=== PATIENT | female | born 1970 | race Caucasian/White ===

== ENCOUNTER 2019-07-21 19:25 | Observation (INO) ==
[2019-07-21 19:44] LABS: Basophils # 0.1 K/mm3 (0-0.2); Eosinophils # 0.3 K/mm3 (0.0-0.4); Eosinophils % 3.5 % (0.1-12.0); Hematocrit 42.5 % (37.0-47.0); Hemoglobin 13.9 g/dL (12.2-16.2); Lymphocytes # 3.1 K/mm3 (0.7-4.5); Lymphocytes % 36.7 % (10-50); Mean Corpuscular HGB Conc 32.7 g/dL (31.8-35.4); Mean Corpuscular Volume 92.4 fl (81-99); Mean Platelet Volume 7.6 fl (7.4-10.4); Monocytes # 0.4 K/mm3 (0.1-1.0); Monocytes % 5.2 % (1.7-9.3); Neutrophils # 4.6 K/mm3 (1.8-7.8); Neutrophils % 53.6 % (37.0-80.0); Platelet Count 263 K/mm3 (142-424); Red Cell Distribution Width 12.7 % (11.5-17.5); White Blood Count 8.5 K/mm3 (4.8-10.8)
--- NOTE | 2019-07-21 20:01 | Emergency Department Note ---
ED Disposition Clinical Impression: Palpitations Chest pain Qualifiers: Chest pain type: precordial pain Qualified Code(s): R07.2 - Precordial pain Disposition: Admitted as Observation Condition on Discharge: Good Referrals: Provider,Referral, [Primary Care Provider] - - Critical Care Critical Care Time: No Attestation: On , the high probability of a clinically significant, sudden or life threatening deterioration of the following system(s) required my full and direct attention, intervention and personal management. The time I documented below is in addition to time spent performing reported procedures but includes the following listed in this critical care notation. Medical Decision Making - Medical Records Medical records reviewed: Yes: I reviewed the patient's medical records. - Kimani Inquiry Pt receiving controlled substance: No Vital Signs: 07/21/19 19:25 07/21/19 20:26 Temperature 98.9 F Temperature Source Oral Pulse Rate [Left Radial] 92 H 89 Respiratory Rate 16 16 Blood Pressure [Right Arm] 142/77 H 139/85 Blood Pressure Mean [Right Arm] 98 103 02 Sat by Pulse Oximetry 99 99 Oxygen Delivery Method Room Air Room Air - Lab Data Lab results reviewed: Yes: I reviewed the patient's lab results. Lab Results 07/21/19 19:30: WBC 8.5, RBC 4.60, Hgb 13.9, Hct 42.5, MCV 92.4, MCH 30.2, MCHC 32.7, RDW 12.7, Plt Count 263, MPV 7.6, Neut % (Auto) 53.6, Lymph % (Auto) 36.7, [place] % (Auto) 5.2, Eos % (Auto) 3.5, Baso % (Auto) 1.0, Neut # (Auto) 4.6, Lymph # (Auto) 3.1, [place] # (Auto) 0.4, Eos # (Auto) 0.3, Baso # (Auto) 0.1, ESR 18 07/21/19 19:30: Sodium 141, Potassium 3.6, Chloride 104, Carbon Dioxide 27, Anion Gap 13.6, BUN 8, Creatinine 0.79, Estimated Creat Clear 105, Estimated GFR 77, Est GFR ( Amer) 94, Glucose 101, Calcium 8.9, Total Bilirubin 0.2, AST 19, ALT 27, Alkaline Phosphatase 123 H, Troponin I < 0.02, C-Reactive Protein 0.8, Total Protein 7.2, Albumin 3.9, Globulin 3.3 H, Albumin/Globulin Ratio 1.2 Result diagrams: 07/21/19 19:30 07/21/19 19:30 Orders (Tests/Meds): ED MEDICATIONS Generic Name Dose Route Start Last Admin Trade Name Freq PRN Reason Stop Dose Admin Sodium Chloride 1,000 mls @ 999 mls/hr 07/21/19 21:00 07/21/19 20:54 Sod Chlor 0.9% 1000ml Bag IV 07/21/19 22:00 999 mls/hr .Q1H1M ANGEL Administration Discontinued Medications Generic Name Dose Route Start Last Admin Trade Name Freq PRN Reason Stop Dose Admin Aspirin 324 mg 07/21/19 19:38 07/21/19 19:40 Aspirin 81mg Chewable Tablet PO 07/21/19 19:39 324 mg ONCE ONE Administration ORDERS Category Date Time Status XR chest 2V Stat Exams 07/21/19 19:37 Taken Troponin I Q3H Lab 07/21/19 22:45 Ordered Troponin I Q3H Lab 07/22/19 01:45 Ordered - ECG Data Tracing #1 Normal Sinus Rhythm: Yes Ischemic changes: non-specific ST-T wave changes - Physician Consults Physician Consulted: gemma Reason -: Admission - SALVADOR Score for Non-Stemi Age of Patient: 40-49 years old Heart Rate: 90-109 bpm Systolic Blood Pressure: 140-159 mmHg Serum Creatinine: 0.40-0.79 mg/dl CHF [place] Class: I-No CHF Other Risk Factors: None Non-Stemi Risk Score: 68 Chest Pain HPI - General Chief Complaint: Arrhythmia/Palpitations Stated Complaint: palpitations, rapid heart rate Time Seen by Provider: 07/21/19 19:50 Mode of Arrival: Ambulatory Source of Information: Patient, Spouse, Medical Record Limitations: No Limitations Description of Symptoms (Recalled from ER Triage Doc. by RN): pt stated she has felt palpitations today along with watching her heart rate spike to 170-190bpm on her watch. pt denies chest pain currently but stated she has felt some pressure at times today. - History of Present Illness HPI narrative: over the last 2-3 days with episodes of increased hr with assoc dizzyness and chest pain w/o syncope - MD complaint: chest pain indicative of cardiac Onset (ago): day(s) Duration: intermittent Activity at onset: during rest Pain location: substernal Severity: moderate Quality: sharp Pain radiation: neck Associated symptoms: palpitations Risk Factors for CAD: Hypertension, Family Hx of CAD Treatments prior to or on arrival for Cardiac Chest Pain: none - SALVADOR Score for Non-Stemi Age of Patient: 40-49 years old Heart Rate: 90-109 bpm Systolic Blood Pressure: 140-159 mmHg Serum Creatinine: 0.40-0.79 mg/dl CHF [place] Class: I-No CHF Other Risk Factors: None Non-Stemi Risk Score: 68 - Related Data On Oral Contraceptives: No Home Medications Medication Instructions Recorded Confirmed Amlodipine Besylate 2.5 mg PO DAILY 07/21/19 07/21/19 Duloxetine HCl 60 mg PO DAILY 07/21/19 07/21/19 Gabapentin [Gabapentin 300mg Cap] 300 mg PO DIRECTED 07/21/19 07/21/19 Pantoprazole Sodium [Protonix 40mg 40 mg PO DAILY 07/21/19 07/21/19 tablet] Verapamil HCl [Verapamil ER Pm] 300 mg PO DAILY 07/21/19 07/21/19 lisinopriL [Lisinopril 20mg Tab] 20 mg PO DAILY 07/21/19 07/21/19 Allergies Allergy/AdvReac Type Severity Reaction Status Date / Time clarithromycin [From Biaxin] AdvReac Verified 07/21/19 19:37 [facility] History - Hepatitis A Screen Drug use history?: No High risk sexual behaviors?: No History of sexually transmitted infection?: No Currently employed?: No Childcare worker?: No Do you have indoor plumbing?: Yes Do you have electricity?: Yes Attestation statement:: This patient has been screened for Hepatitis A risk factors. I have reviewed the patient's past medical history: Yes - Social History Alcohol Intake: never Occupational Status: employed ROS Obtained: Yes All systems reviewed & no additional complaints - Constitutional Constitutional: Denies fever(s) - Eyes Eyes: Denies change in vision - ENT Ears, Nose, Mouth, and Throat: Denies sore throat - Cardiovascular Cardiovascular: Reports as per HPI, Reports chest pain, Reports dyspnea - Respiratory Respiratory: No cough - Gastrointestinal Gastrointestingal: Denies: abdominal pain - Genitourinary Female Genitourinary: Denies hematuria - Musculoskeletal Musculoskeletal: Denies joint swelling - Integumentary/Breasts Skin/Breast: Denies rash - Neurologic Neurologic: Reports as per HPI, Denies focal weakness, Denies seizure-like activity Physical Exam - General General appearance: alert - Head Head exam: normocephalic - Eye Eye exam: Present: PERRL, EOMI - ENT ENT exam: Present: mucous membranes moist - Neck Neck exam: Present: trachea midline - Respiratory Respiratory exam: Present: normal lung sounds bilaterally. Absent: respiratory distress - Cardiovascular Cardiovascular exam: Present: regular rate, systolic murmur. Absent: rubs, gallop - Abdominal Exam Abdominal exam: Present: soft - Extremities Exam Extremities exam: Present: full ROM - Neurological Exam Neurological exam: Present: alert, oriented X3, CN II-XII intact - Psychiatric Psychiatric exam: Present: normal affect - Skin Skin exam: Absent: rash
[2019-07-21 20:36] LABS: Alanine Aminotransferase 27 U/L (12-78); Albumin Level 3.9 gm/dL (3.4-5.0); Albumin/Globulin Ratio 1.2 (1.1-1.8); Alkaline Phosphatase 123 U/L (46-116); Anion Gap 13.6 mEq/L (5-15); Aspartate Amino Transferase 19 U/L (15-37); Bilirubin,Total 0.2 mg/dL (0.2-1.0); Blood Urea Nitrogen 8 mg/dL (7-18); C-Reactive Protein 0.8 mg/dL (0.0-0.9); Calcium 8.9 mg/dL (8.5-10.1); Carbon Dioxide 27 mmol/L (21.0-32.0); Chloride 104 mmol/L (98-107); Globulin 3.3 gm/dl (1.3-3.2); Glucose 101 mg/dL (74-106); Sodium 141 mmol/L (136-145); Total Protein,Serum 7.2 gm/dL (6.4-8.2)
[2019-07-21 20:44] LABS: Erythrocyte Sedimentation Rate 18 mm/hr (0-20)
[2019-07-22 06:09] LABS: Basophils # 0.1 K/mm3 (0-0.2); Basophils % 1.1 % (0.1-2.0); Eosinophils # 0.3 K/mm3 (0.0-0.4); Eosinophils % 3.8 % (0.1-12.0); Hematocrit 37.3 % (37.0-47.0); Lymphocytes # 2.7 K/mm3 (0.7-4.5); Lymphocytes % 40.3 % (10-50); Mean Corpuscular HGB Conc 32.2 g/dL (31.8-35.4); Mean Corpuscular Volume 92.1 fl (81-99); Mean Platelet Volume 7.6 fl (7.4-10.4); Monocytes # 0.4 K/mm3 (0.1-1.0); Monocytes % 6.3 % (1.7-9.3); Neutrophils # 3.3 K/mm3 (1.8-7.8); Neutrophils % 48.4 % (37.0-80.0); Platelet Count 226 K/mm3 (142-424); Red Blood Count 4.05 M/mm3 (4.20-5.40); Red Cell Distribution Width 12.7 % (11.5-17.5); White Blood Count 6.8 K/mm3 (4.8-10.8)
[2019-07-22 06:28] LABS: Hemoglobin 12.1 g/dL (12.2-16.2)
[2019-07-22 06:52] LABS: Anion Gap 11.9 mEq/L (5-15); Calcium 8.1 mg/dL (8.5-10.1)
--- NOTE | 2019-07-22 07:21 | Pharmacy Consult Notes ---
[facility] Pharmacy VTE Monitoring - Patient Demographics Admission date: 07/21/19 Report Date: 07/22/19 Time: 07:21 Allergies/Adverse Reactions: Patient Allergies clarithromycin [From Biaxin] Adverse Reaction (Intermediate, Verified 07/21/19 22:52) Vomiting Height: 1.63 m Weight: 79.152 kg Patient Problems: Current Active Problems Palpitations (Acute) Chest pain (Acute) - VTE Risk Labs: VTE Related Lab Results Hgb 12.1 g/dL (12.2-16.2) L D 07/22/19 05:45 Hct 37.3 % (37.0-47.0) 07/22/19 05:45 Plt Count 226 K/mm3 (142-424) 07/22/19 05:45 BUN 7 mg/dL (7-18) 07/22/19 05:45 Creatinine 0.73 mg/dL (0.55-1.02) 07/22/19 05:45 Estimated Creat Clear 116 mL/min (50-200) 07/22/19 05:45 VTE Score: 6 VTE Risk Level: Moderate Risk - Prophylaxis VTE Prophylaxis Ordered?: Yes Types of VTE Prophylaxis: TEDS Knee High Location of Applied Device: Bilateral Lower Extremeties
--- NOTE | 2019-07-22 07:59 | H&P/Discharge Summary ---
General - General Admission date:: 07/21/19 Discharge date: 07/22/19 *Admission Date: 07/21/19 *Chief complaint: Chest pain and palpitations *History of present illness: 48-year-old white female with history of POTS syndrome and depression with anxiety features, who over the past couple of days has just not felt herself. She reports that 2 days ago while shopping she became somewhat anxious and had some palpitations with heart rates up in the 100s and down to the 50s. The next day she became very angry which was unusual for her and then the morning of admission began to have some pressure-like chest pain for several hours. Came to the emergency department late last night and was admitted to the hospital for further diagnostic testing and rule out GA. [facility] History I have reviewed the patient's past medical history: Yes Medical History: Reports:: Hyperlipidemia, Hypertension Denies:: Cancer, Diabetes Mellitus Type 1, Diabetes Mellitus Type 2 *Have you ever received a pneumonia vaccine?: No (does not want on d/c) *Have you received a flu vaccine this season?: No (does not want on d/c) Comment:: History of WEINSTEIN, diagnosed many years ago Laterality Cases: Bilateral: Lumpectomy Other Surgeries: Yes: Appendectomy, Colonoscopy, EGD, Hysterectomy-Partial, Other (R knee meniscus repair) Fractures: No - *Social History Educational Level: Completed High School Smoking Status: Never smoker Alcohol Intake: current Alcohol Intake Frequency:: a few times a month *Occupational Status:: employed Housing: house Household Members: significant other, children *Travel in the last 8 weeks: None Family Hx:: Anemia, Cancer, Coronary Artery Disease, Diabetes, Hyperlipidemia, Hypertension, Stroke, Substance abuse, Alcoholism Review of Systems - Review of Systems Review of systems:: pertinent systems reviewed and negative unless documented below Patient denies GI or respiratory symptoms. Other than her cardiac symptoms a 10 point review of systems otherwise negative. - *Neurologic Denies localized weakness, Denies seizure-like activity Exam Vital signs and Labs for Last 24 Hours: Temp Pulse Resp BP Pulse Ox 97.5 F L 80 20 110/65 91 L 07/22/19 04:00 07/22/19 04:00 07/22/19 04:00 07/22/19 04:00 07/22/19 04:00 Laboratory Results - last 24 hr 07/21/19 19:30: WBC 8.5, RBC 4.60, Hgb 13.9, Hct 42.5, MCV 92.4, MCH 30.2, MCHC 32.7, RDW 12.7, Plt Count 263, MPV 7.6, Neut % (Auto) 53.6, Lymph % (Auto) 36.7, [place] % (Auto) 5.2, Eos % (Auto) 3.5, Baso % (Auto) 1.0, Neut # (Auto) 4.6, Lymph # (Auto) 3.1, [place] # (Auto) 0.4, Eos # (Auto) 0.3, Baso # (Auto) 0.1, ESR 18 07/21/19 19:30: Sodium 141, Potassium 3.6, Chloride 104, Carbon Dioxide 27, Anion Gap 13.6, BUN 8, Creatinine 0.79, Estimated Creat Clear 105, Estimated GFR 77, Est GFR ( Amer) 94, Glucose 101, Calcium 8.9, Total Bilirubin 0.2, AST 19, ALT 27, Alkaline Phosphatase 123 H, Troponin I < 0.02, C-Reactive Protein 0.8, Total Protein 7.2, Albumin 3.9, Globulin 3.3 H, Albumin/Globulin Ratio 1.2 07/21/19 22:46: Troponin I < 0.02 07/22/19 01:50: Troponin I < 0.02 07/22/19 05:45: WBC 6.8, RBC 4.05 L, Hgb 12.1 L D, Hct 37.3, MCV 92.1, MCH 29.7, MCHC 32.2, RDW 12.7, Plt Count 226, MPV 7.6, Neut % (Auto) 48.4, Lymph % (Auto) 40.3, [place] % (Auto) 6.3, Eos % (Auto) 3.8, Baso % (Auto) 1.1, Neut # (Auto) 3.3, Lymph # (Auto) 2.7, [place] # (Auto) 0.4, Eos # (Auto) 0.3, Baso # (Auto) 0.1 07/22/19 05:45: Sodium 142, Potassium 3.9, Chloride 108 H, Carbon Dioxide 26, Anion Gap 11.9, BUN 7, Creatinine 0.73, Estimated Creat Clear 116, Estimated GFR 85, Est GFR ( Amer) 103, Glucose 95, Calcium 8.1 L, Magnesium 1.8 I & O for Last 24 hours: Intake & Output 07/19/19 07/20/19 07/21/19 07/22/19 11:59 11:59 11:59 11:59 Intake Total 1000 / 1000 Balance 1000 / 1000 Weight 174 lb 8 oz - Constitutional no acute distress - *Routine HEENT Exam Head: Present: normocephalic Eye: Present: EOMI, PERRL ENT: Present: mucous membranes moist - *Routine Neck Exam Present: supple. Absent: lymphadenopathy - *Routine Respiratory Exam Present: CTA bilaterally - *Routine Cardiovascular Exam Present: RRR - *Routine Abdominal Exam Present: soft, normoactive bowel sounds. Absent: tenderness - *Routine Extremities Exam Absent: cyanosis, clubbing, edema - *Routine Skin Exam Present: warm. Absent: rash - *Routine Neurological Exam Present: alert, oriented X3 Hospital Course Hospital Course: Patient was admitted overnight, ruled out for myocardial infarction by enzyme and EKG criteria. No further chest pain. Pulse rates remained in the 70s to 80s in sinus rhythm. Echocardiogram has been done this morning. Official results pending. Patient feels much better and I believe is safe to be discharged home. I will discharge her with a 48-hour Holter monitor. I will see her back in my office on Sunday to review this testing. Results Labs on day of discharge: Labs from last 24 hours 07/22/19 07/22/19 07/22/19 05:45 05:45 01:50 WBC 6.8 RBC 4.05 L Hgb 12.1 L D Hct 37.3 MCV 92.1 MCH 29.7 MCHC 32.2 RDW 12.7 Plt Count 226 MPV 7.6 Neut % (Auto) 48.4 Lymph % (Auto) 40.3 [place] % (Auto) 6.3 Eos % (Auto) 3.8 Baso % (Auto) 1.1 Neut # (Auto) 3.3 Lymph # (Auto) 2.7 [place] # (Auto) 0.4 Eos # (Auto) 0.3 Baso # (Auto) 0.1 ESR Sodium 142 Potassium 3.9 Chloride 108 H Carbon Dioxide 26 Anion Gap 11.9 BUN 7 Creatinine 0.73 Estimated Creat Clear 116 Estimated GFR 85 Est GFR ( Amer) 103 Glucose 95 Calcium 8.1 L Magnesium 1.8 Total Bilirubin AST ALT Alkaline Phosphatase Troponin I < 0.02 C-Reactive Protein Total Protein Albumin Globulin Albumin/Globulin Ratio 07/21/19 07/21/19 07/21/19 22:46 19:30 19:30 WBC 8.5 RBC 4.60 Hgb 13.9 Hct 42.5 MCV 92.4 MCH 30.2 MCHC 32.7 RDW 12.7 Plt Count 263 MPV 7.6 Neut % (Auto) 53.6 Lymph % (Auto) 36.7 [place] % (Auto) 5.2 Eos % (Auto) 3.5 Baso % (Auto) 1.0 Neut # (Auto) 4.6 Lymph # (Auto) 3.1 [place] # (Auto) 0.4 Eos # (Auto) 0.3 Baso # (Auto) 0.1 ESR 18 Sodium 141 Potassium 3.6 Chloride 104 Carbon Dioxide 27 Anion Gap 13.6 BUN 8 Creatinine 0.79 Estimated Creat Clear 105 Estimated GFR 77 Est GFR ( Amer) 94 Glucose 101 Calcium 8.9 Magnesium Total Bilirubin 0.2 AST 19 ALT 27 Alkaline Phosphatase 123 H Troponin I < 0.02 < 0.02 C-Reactive Protein 0.8 Total Protein 7.2 Albumin 3.9 Globulin 3.3 H Albumin/Globulin Ratio 1.2 DS: Diagnosis - Discharge Diagnosis (1) Chest pain Status: Acute (2) Palpitations Status: Acute Discharge Plan - Patient Discharge Instructions ACTIVITY: Continue current activity DIET: continue same diet Patient Instructions: DI for Chest Pain, DI for Palpitations - Follow up Plan Follow up with: Tra Collins MD [Staff Physician] - 07/25/19 Disposition: Home, Self-Jail Medications: Home Medications Medication Instructions Recorded Confirmed Type Amlodipine Besylate 2.5 mg PO DAILY 07/21/19 07/21/19 History Black Cohosh 40 mg PO DAILY 07/21/19 07/21/19 History Cyanocobalamin (Vitamin B-12) 1,000 mcg PO DAILY 07/21/19 07/21/19 History [Vitamin B-12] Duloxetine HCl 60 mg PO DAILY 07/21/19 07/21/19 History Ergocalciferol (Vitamin D2) 400 mg PO DAILY 07/21/19 07/21/19 History [Vitamin D] Gabapentin [Gabapentin 300mg Cap] 300 mg PO DIRECTED 07/21/19 07/21/19 History Pantoprazole Sodium [Protonix 40mg 40 mg PO DAILY 07/21/19 07/21/19 History tablet] Verapamil HCl [Verapamil ER Pm] 300 mg PO DAILY 07/21/19 07/21/19 History lisinopriL [Lisinopril 20mg Tab] 20 mg PO DAILY 07/21/19 07/21/19 History Prescriptions/Medication Reconciliation: Continued lisinopriL [Lisinopril 20mg Tab] 20 mg PO DAILY Duloxetine HCl 60 mg PO DAILY Verapamil HCl [Verapamil ER Pm] 300 mg PO DAILY Ergocalciferol (Vitamin D2) [Vitamin D] 400 mg PO DAILY Cyanocobalamin (Vitamin B-12) [Vitamin B-12] 1,000 mcg PO DAILY Pantoprazole Sodium [Protonix 40mg tablet] 40 mg PO DAILY Gabapentin [Gabapentin 300mg Cap] 300 mg PO DIRECTED Amlodipine Besylate 2.5 mg PO DAILY Black Coh[place] 40 mg PO DAILY Other Amb Orders: Holter Monitor Req by Brissa/ Location: None Selected - Problem Reconciliation Problems Reviewed?: Yes
--- NOTE | 2019-07-22 08:35 | Electrocardiograph Report ---
APPROVED REPORT Exam: Resting ECG HR:92 bpm ECG Measurements Heart Rate 92 AXES [place] 114 P 59 QRSd 90 QRS 44 QT 354 T59 QTc 437 <Conclusion> Normal sinus rhythm Normal ECG Electronically signed by : Ilir Colon, 07/22/2019 08:35:11
[2019-07-22 09:06] VITALS: BP 134/83
--- NOTE | 2019-07-22 21:21 | Cardiology Report ---
APPROVED REPORT EXAM: Comprehensive 2D, Doppler, and color-flow Echocardiogram Expanded Duty Dental Assistant: Keli Pacheco CRT Ht: 5 ft 4 in Wt: 173lbs BSA: 1.84 BP: 139/85 mmHg Indications: Chest Pain, Shortness of Breath, Palpitations, Hypertension/HDD 2D Dimensions LVOT 1.70 cm (M/F) 1.5-2.5 M-Mode Dimensions RVDd 2.50 cm (0.9-2.6)LA Diam 3.30 cm (1.9-4.0) LVDd 4.90 cm (3.5-5.7)Ao Diam 3.00 cm (2.0-3.7) LVDs 3.50 cm (3.5-5.7)AV Cusp 1.80 cm (1.5-2.6) IVSd 1.30 cm (0.6-1.1)PWd 0.80 cm (0.6-1.1) EF (Teich) 55.00% FS 28.60% EDV (Teich) 113.00 mLESV (Teich) 50.90 mL LV Diastology E/A Ratio 0.90MED E' 10.80 (< 7 cm/sec) E'/MED E' Ratio7.20 (>14)LAT E' 11.00 (<10 cm/sec) E/LAT E' Ratio 7.00 (>14) Aortic Valve AoV Peak Griffin. 166.00 (50-130 cm/s)AO Peak GR. 11.00 mmHg Mitral Valve MV E Max Griffin. 77.50 (40-130 cm/s)MV A Velocity 83.90 (40-130 cm/s) E/A Ratio 0.90 Pulmonary Valve PA Accel Time 141.00 (>120 msec) Tricuspid Valve TR P. [id number] cm/sRAP Estimate 10.00 mmHg RVSP 34.00 mmHg Left Ventricle Left atrium is mildly enlarged, left ventricle is normal size, mild concentric left ventricular hypertrophy, visually estimated ejection fraction 50% with no regional wall motion abnormality, grade 1 diastolic dysfunction seen without tissue Doppler evidence of raise left atrial pressure. Endocardial surfaces are poorly visualized. Right Ventricle Right atrium and right ventricle mildly enlarged with normal contractility. Aortic Valve Aortic valve is thickened and calcified leaflet chordae display good mobility, there is no aortic stenosis or aortic insufficiency. Mitral Valve Mitral valve is grossly normal, there is mild mitral regurgitation. Tricuspid Valve Tricuspid valve is grossly normal, there is mild tricuspid regurgitation. Pulmonic Valve Pulmonic valve is poorly visualized. Great Vessels Aortic root is normal size. Pericardium No significant pericardial effusion noted. Conclusion 1. Normal left ventricular size, preserved left ventricular systolic function, visually estimated ejection fraction 50% with no regional wall motion abnormality, mild concentric left ventricular hypertrophy present. Grade 1 diastolic dysfunction seen without tissue Doppler evidence of raise left atrial pressure. 2. Mild mitral and tricuspid regurgitation. 3. No significant pericardial effusion noted. Electronically signed by : Jorge Burns, 07/22/2019 21:21:23
== END 2019-07-22 09:31 | disposition home or self-care (01) ==
LOC: ER 19:25 → 2ND 19:25
PROVIDERS: ADMIT Internal Medicine Adolescent Medicine; ATTEND Internal Medicine Adolescent Medicine
CPT/HCPCS: 36415; 71020; 71046; 80048; 80053; 83735; 84484; 85025; 85651; 86140; 93005; 93225; 93226; 93306; 96365; 99284; G0378

== ENCOUNTER → 2019-07-30 10:02 | Outpatient (CLI) | payer BC, SELFPAY ==
[2019-07-30 12:54] LABS: Free T4 (Free Thyroxine) 0.92 ng/dl (0.76-1.46)
[2019-07-31 10:30] LABS: Triiodothyronine (T3) Free 2.9 pg/mL (2.0-4.4)
== END ==
PROVIDERS: PCP Family Medicine; Visit Provider Urology
DX: R00.2 Palpitations (principal); R07.9 Chest pain, unspecified; I10 Essential (primary) hypertension; I49.8 Other specified cardiac arrhythmias
CPT/HCPCS: 36415; 84439; 84443; 84481; 93270

== ENCOUNTER → 2019-08-07 09:13 | Outpatient (CLI) | payer BC, SELFPAY ==
--- NOTE | 2019-08-07 09:15 | CA_ITS ---
APPROVED REPORT Exam: Exercise Treadmill Technologist: Mirian Osorio, Ht: 5 ft 4 in Wt: 170 lbs BSA: 1.83 m2 HR: 96 bpm BP: 131/82 mmHg Rhythm: NSR Indications: CP,Palp Medical History Medical History: HTN Medications: Amlodipine,,,,, Lisinopril,,,,, Verapamil,,,,, Gabapentin,,,,, Pantoprazole,,,,, DulOXETINE,,,,, CHOLECALCIFEROL,,,,, CyANCobalamin,,,,, Stress Test Details Test: Mark HR Resting HR: 92 bpm Max Heart Rate (APMHR): 171 bpm Max HR Achieved: 185 bpm Target HR (85% APMHR): 145 bpm % of APMHR: 108 BP Resting BP: 131/82 mmHg Max BP: 174/80 mmHg ECG Clinical Exercise duration: 05:14 min Highest Stage Achieved: Exercise capacity: 7.0 METs Stress ECG Conclusion Exercised 05:14 mins on Mark protocol stopping due to SOA and tightness is neck and throat SOA, tightness in neck and throat, tightness in chest symptoms were noted / Rapid increase in HR at low level of exercise, sinus rhythm throughout rare PVC / Normal ST-T responses to exercise Rapid elevation in HR with minimal activity GXT only Abnormal stress test. Test Summary RECOVERY 02:00 0.0 0.0 134 . . . . REST . . . . . . . Sitting REST 08:49 0.0 0.0 92 . 131/ 82 . . Stage 1 01:00 10.0 1.7 119 . . . . Stage 1 02:00 10.0 1.7 149 . . . . Stage 1 03:00 10.0 1.7 164 . . . . Stage 2 01:00 12.0 2.5 174 . 174/ 80 . . Stage 2 02:00 12.0 2.5 183 . 174/ 80 . . Stage 2 02:14 12.0 2.5 184 . 174/ 80 . Stop exercise at 05:14 RECOVERY 01:00 0.0 0.0 167 . . . . RECOVERY 02:00 0.0 0.0 134 . . . . RECOVERY 03:00 0.0 0.0 116 . 172/ 92 . . RECOVERY 04:00 0.0 0.0 111 . 172/ 92 . . RECOVERY 05:00 0.0 0.0 106 . 172/ 92 . . RECOVERY 06:00 0.0 0.0 106 . 135/ 85 . . RECOVERY 07:00 0.0 0.0 103 . 135/ 85 . . RECOVERY 08:00 0.0 0.0 104 . 137/ 84 . . RECOVERY 09:00 0.0 0.0 106 . 137/ 84 . . RECOVERY 10:00 0.0 0.0 107 . 137/ 84 . . RECOVERY 10:28 0.0 0.0 105 . 136/ 86 . . Electronically signed by : Jorge Burns, 08/07/2019 16:42:04
== END ==
PROVIDERS: PCP Family Medicine; Visit Provider Urology
DX: R07.9 Chest pain, unspecified (principal); R00.2 Palpitations
CPT/HCPCS: 93017

== ENCOUNTER → 2020-01-20 09:40 | Outpatient (CLI) | payer BC, SELFPAY ==
[2020-01-20 10:14] LABS: Basophils % 0.7 % (0.1-2.0); Eosinophils # 0.1 K/mm3 (0.0-0.4); Eosinophils % 1.6 % (0.1-12.0); Lymphocytes # 1.9 K/mm3 (0.7-4.5); Lymphocytes % 28.9 % (10-50); Mean Corpuscular HGB Conc 33.4 g/dL (31.8-35.4); Mean Corpuscular Hemoglobin 30.7 pg (27.0-31.2); Mean Corpuscular Volume 91.8 fl (81-99); Mean Platelet Volume 7.7 fl (7.4-10.4); Monocytes # 0.4 K/mm3 (0.1-1.0); Monocytes % 5.6 % (1.7-9.3); Neutrophils # 4.2 K/mm3 (1.8-7.8); Neutrophils % 63.2 % (37.0-80.0); Platelet Count 240 K/mm3 (142-424); Red Blood Count 4.58 M/mm3 (4.20-5.40); Red Cell Distribution Width 13.2 % (11.5-17.5); White Blood Count 6.7 K/mm3 (4.8-10.8)
[2020-01-20 10:35] LABS: Chloride 102 mmol/L (98-107); Potassium 4.3 mmoL/L (3.5-5.1); Sodium 139 mmol/L (136-145)
[2020-01-20 10:38] LABS: Anion Gap 10.3 mEq/L (5-15); Blood Urea Nitrogen 7 mg/dl (7-17); Calcium 9.5 mg/dl (8.4-10.2); Carbon Dioxide 31 mmol/L (22.0-30.0); Estimated Glomerular Filt Rate 106 ml/min (>60); GFR (African American) 128 ML/MIN (>60); Glucose 89 mg/dl (74-100)
== END ==
PROVIDERS: Visit Provider Urology
DX: R07.9 Chest pain, unspecified (principal); R00.2 Palpitations; I49.8 Other specified cardiac arrhythmias; I10 Essential (primary) hypertension
CPT/HCPCS: 36415; 80048; 85025

== ENCOUNTER → 2020-01-28 06:40 | Outpatient (CLI) | payer BC, SELFPAY ==
--- NOTE | 2020-01-28 06:44 | CA_ITS ---
APPROVED REPORT Exam: Exercise Treadmill Technologist: Renée Nova, Ht: 5 ft 4 in Wt: 170 lbs BSA: 1.83 m2 HR: 91 bpm BP: 151/101 mmHg Rhythm: NSR,PRWP ANTERIORLY Medical History Medical History: HTN, Hyperlipidemia Medications: Amlodipine,,,,, Lisinopril,,,,, Metoprolol,,,,, Gabapentin,,,,, Pantoprazole,,,,, DulOXETINE,,,,, Vit B12,,,,, Black Coh[place],,,,, Allergies: CLARITHROMYCIN Cardiac Risk Factors: HTN, Hyperlipidemia, FHX of CAD Stress Test Details Test: Mark HR Resting HR: 104 bpm Max Heart Rate (APMHR): 170 bpm Max HR Achieved: 176 bpm Target HR (85% APMHR): 144 bpm % of APMHR: 103 Recovery HR: 136 bpm BP Resting BP: 170.0/88.0 mmHg Max BP: 202.0/93.0 mmHg Recovery BP: 202.0/93.0 mmHg ECG Resting ECG: NSR,PRWP ANTERIORLY Clinical Reason for Termination: Chest pain, Dyspnea Exercise duration: 06:31 min Highest Stage Achieved: Exercise capacity: 7.0 METs Stress ECG Conclusion MILD CHEST PAIN AND THROAT TIGHTNESS AT PEAK EXERCISE. EXERCISED 6:30 ON MARK PROTOCOL. MAX HEART RATE 176 BPM WHICH IS 120% OF PM FOR AGE. METS = 7.0. TEST STOPPED DUE TO CP AND SOA. NO ARRHYTHMIAS/ECTOPY. <1.5MM ST SEGMENT DEPRESSION-UPSLOPING. ABNORMAL STRESS DUE TO SYMPTOMS. Test Summary REST . . . . . . . Sitting REST . . . . . . . Standing REST 14:57 0.0 0.0 104 . 170/ 88 . . Stage 1 01:00 10.0 1.7 124 . . . . Stage 1 02:00 10.0 1.7 148 . . . . Stage 1 03:00 10.0 1.7 154 . 180/110 . . Stage 2 01:00 12.0 2.5 160 . . . . Stage 2 02:00 12.0 2.5 165 . 192/112 . . Stage 2 . . . . . . . Cardiolite injected Stage 2 03:00 12.0 2.5 170 . 192/112 . . Stage 3 00:31 14.0 3.4 174 . . . Stop exercise at 06:31 RECOVERY 01:00 0.0 0.0 157 . . . . RECOVERY 02:00 0.0 0.0 138 . 202/ 93 . . RECOVERY 03:00 0.0 0.0 118 . 202/ 93 . . RECOVERY 04:00 0.0 0.0 112 . 202/ 93 . . RECOVERY 05:00 0.0 0.0 108 . 202/ 93 . . RECOVERY 06:00 0.0 0.0 110 . 202/ 93 . . RECOVERY 07:00 0.0 0.0 110 . 156/ 92 . . RECOVERY 07:21 0.0 0.0 109 . 156/ 92 . . Electronically signed by : Jorge Burns, 01/29/2020 11:05:11
--- NOTE | 2020-01-28 06:44 | NM_ITS ---
APPROVED REPORT Exam: Nuclear Stress Test Indication: Chest pain, SOB, Palpitations, Syncope, Fatigue, Dizziness, HTN, High cholesterol, Family history Patient Location: Outpatient Stress Tech: Loulou Almendareznkson NM Tech:Vicky Jones, ARRT, RT (R)(N) Ht: 5 ft 4 in Wt: 167 lbs Bra Size: 38D HR: 91 bpm BP: 151/101 mmHg BSA: 1.81 m2 BMI: 28.6 History: Chest pain, SOB, Palpitations, Syncope, Fatigue, Dizziness, HTN, High cholesterol, Family history Procedure: Patient exercised on Mark protocol 6:30 minutes and sec, resting heart rate 91 bpm, resting blood pressure 151/101 mmHg, with exercise maximum heart rate achived was 176 bpm which is Greater than 85 % of the maximum predicted heart rate and blood pressure was 192/112 mmHg. Test was stopped due to SOA and chest pain. Patient has Adequate exercise capacity, achieved 7.0 METs of workload on treadmill, the blood pressure response to exercise was Hypertensive. Electrocardiogram Resting electrocardiogram showed sinus rhythm, with exercise there is less than 1.[address] segment depression noted from the baseline EKG. The EKG portion of the exercise Myoview is negative for ischemia. Cardiac Stress and Resting SPECT Images: Cardiac Stress and Resting SPECT images were obtained using technetium 99m Myoview 31.8 mCi stress and 10.91 mCi at rest. Gated SPECT with analysis of segmental wall motion and calculation of the ejection fraction also done. Cardiac stress and rest SPECT images show a fixed defect involving the anterior apical and septal wall with normal contractility on gated SPECT is likely secondary to soft tissue attenuation, no reversible ischemia seen. Computer derived ejection fraction is 46% with no regional wall motion abnormality. Right ventricle is normal size and contractility. Conclusion: 1. The EKG portion of the exercise Myoview is negative for ischemia, patient has adequate exercise capacity achieved 7 mets of workload on treadmill, the blood pressure response to exercise was hypertensive, patient complained of shortness of breath and chest pain with exercise. 2. No scintigraphic evidence of reversible ischemia seen at this level of exercise, computer derived ejection fraction is 46% with no regional wall motion abnormality, right ventricle is normal size and contractility. 3. Equivocal exercise Myoview study. Electronically signed by : Jorge Burns, 01/29/2020 11:21:14
--- NOTE | 2020-01-28 08:35 | HMH.ITSHM ---
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 []DULOXETINE PANTOPRAZOLE METOPROLOL GABAPENTIN LISINOPRIL VITAMIN D3 BLACK COHOSH CLARATIN ASA
== END ==
PROVIDERS: PCP Family Medicine; Visit Provider Urology
DX: I51.89 Other ill-defined heart diseases (principal); I49.8 Other specified cardiac arrhythmias; I10 Essential (primary) hypertension
CPT/HCPCS: 78452; 93017; A9502

== ENCOUNTER 2020-02-13 07:47 | Day surgery (SDC) | payer BC, SELFPAY ==
[2020-02-13] VITALS (10 sets, daily range): BP systolic 134–154; BP diastolic 84–97; PULSE 80–103; RESP 16–18; TEMP 36.7; O2SAT 95–99
--- NOTE | 2020-02-13 | IR_ITS ---
APPROVED REPORT Patient Location: Outpatient PROCEDURES Left heart catheterization Left ventriculogram Selective coronary angiogram INDICATION Typical angina pectoris with suspected coronary disease Informed consent was obtained prior to the procedure. COMPLICATIONS NONE Estimated Blood Loss: LESS THAN 10 ML TECHNIQUE One percent lidocaine used to anesthetize the right anterior aspect of the wrist. The right radial artery was accessed via the Seldinger technique. A 6 Luxembourg[place] sheath was placed in the right radial artery. 2.5 mg of verapamil, 800 mcg of nitroglycerin, 1mg Lidocaine and 5000 U Heparin were given through the arterial sheath. The trap catheter was also used to perform left heart catheterization, left ventriculogram and selective coronary angiogram. At the end of the procedure the sheath was removed good hemostasis was achieved using Traclet band, patient was transferred to the postop holding area in stable condition. ANGIOGRAPHIC RESULTS The left main artery Normal The left anterior descending artery Normal The circumflex artery Normal The right coronary artery Dominant normal The CHAVEZ ventriculogram reveals Normal 65% The left ventricular end-diastolic pressure Moderately elevated at 30 mmHg IMPRESSION Normal coronary arteries Normal ejection fraction Elevated LVEDP consistent with diastolic dysfunction which is almost certainly the etiology for patient's angina PLAN 1. Treatment of diastolic dysfunction with blood pressure control and loop diuretics Electronically signed by : Jonnie Jones, 02/13/2020 09:22:12
[2020-02-13 08:28] LABS: Basophils # 0.1 K/mm3 (0-0.2); Basophils % 0.9 % (0.1-2.0); Eosinophils # 0.2 K/mm3 (0.0-0.4); Eosinophils % 2.5 % (0.1-12.0); Hematocrit 41.1 % (37.0-47.0); Lymphocytes # 2.3 K/mm3 (0.7-4.5); Lymphocytes % 32.8 % (10-50); Mean Corpuscular HGB Conc 34.1 g/dL (31.8-35.4); Mean Corpuscular Hemoglobin 30.5 pg (27.0-31.2); Mean Corpuscular Volume 89.5 fl (81-99); Mean Platelet Volume 7.9 fl (7.4-10.4); Monocytes # 0.4 K/mm3 (0.1-1.0); Monocytes % 5.1 % (1.7-9.3); Neutrophils # 4.1 K/mm3 (1.8-7.8); Neutrophils % 58.7 % (37.0-80.0); Platelet Count 244 K/mm3 (142-424); Red Blood Count 4.59 M/mm3 (4.20-5.40); Red Cell Distribution Width 12.9 % (11.5-17.5); White Blood Count 6.9 K/mm3 (4.8-10.8)
[2020-02-13 08:30] LABS: Chloride 105 mmol/L (98-107)
[2020-02-13 08:31] LABS: Potassium 3.9 mmoL/L (3.5-5.1); Sodium 139 mmol/L (136-145)
[2020-02-13 08:33] LABS: Blood Urea Nitrogen 8 mg/dl (7-17); Creatinine Clearance Estimated 141 mL/min (50-200); Estimated Glomerular Filt Rate 106 ml/min (>60); GFR (African American) 128 ML/MIN (>60)
[2020-02-13 08:34] LABS: Anion Gap 10.9 mEq/L (5-15); Calcium 9.2 mg/dl (8.4-10.2); Carbon Dioxide 27 mmol/L (22.0-30.0); Glucose 97 mg/dl (74-100)
[2020-02-13 09:11] LABS: Coronavirus 19 IgG Antibody Negative (Negative); Coronavirus 19 IgM Antibody Negative (Negative)
== END 2020-02-13 12:10 | disposition home or self-care (01) ==
LOC: CATHLAB 07:48
PROVIDERS: PCP Family Medicine; Visit Provider Internal Medicine
DX: I11.0 Hypertensive heart disease with heart failure (principal); I50.30 Unspecified diastolic (congestive) heart failure; I25.118 Atherosclerotic heart disease of native coronary artery with other forms of angina pectoris; I49.8 Other specified cardiac arrhythmias; Z82.49 Family history of ischemic heart disease and other diseases of the circulatory system; R94.39 Abnormal result of other cardiovascular function study; Z79.899 Other long term (current) drug therapy
CPT/HCPCS: 80048; 85025; 86328; 93458; 99152; C1725; C1769; J1644; J2405; Q9967

== ENCOUNTER → 2020-09-08 14:47 | Outpatient (CLI) | payer BC, SELFPAY ==
--- NOTE | 2020-09-08 14:48 | CA_ITS ---
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: CT Indications History of Smoking edema, HTN, HLD Risk Factors Current Smoker Vein Imaging CFV (R): compressive, spontaneous, phasic, augmentation FEM (R): compressive, spontaneous, phasic, augmentation POP (R): compressive, spontaneous, phasic, augmentation DFV (R): compressive, spontaneous, phasic, augmentation PTV (R): compressive, spontaneous, phasic, augmentation GSV (R): compressive, spontaneous, phasic, augmentation Peroneals (R):compressive, spontaneous, phasic, augmentation GAS (R): compressive, spontaneous, phasic, augmentation CFV (L): compressive, spontaneous, phasic, augmentation FEM (L): compressive, spontaneous, phasic, augmentation POP (L): compressive, spontaneous, phasic, augmentation PTV (L): compressive, spontaneous, phasic, augmentation GSV (L): compressive, spontaneous, phasic, augmentation Peroneals (L):compressive, spontaneous, phasic, augmentation GAS (L): compressive, spontaneous, phasic, augmentation Findings Negative for DVT. Color flow duplex demonstrates no evidence of DVT of the following bilateral lower extremity Veins:Femoral Vein, Common Femoral Vein, Popliteal Vein, Posterior Tibial Veins, Peroneal Veins. Conclusion Negative for DVT. Color flow duplex demonstrates no evidence of DVT of the following bilateral lower extremity Veins:Femoral Vein, Common Femoral Vein, Popliteal Vein, Posterior Tibial Veins, Peroneal Veins. Electronically signed by : Jonas Hernandez MD 09/08/2020 17:11:09
== END ==
PROVIDERS: PCP Family Medicine; Visit Provider Nurse Practitioner Family
DX: R06.00 Dyspnea, unspecified (principal); R07.2 Precordial pain; R60.0 Localized edema; M79.89 Other specified soft tissue disorders; I10 Essential (primary) hypertension; I51.89 Other ill-defined heart diseases
CPT/HCPCS: 93970

== ENCOUNTER → 2020-09-17 10:39 | Outpatient (CLI) | payer BC, SELFPAY | PROVIDERS: PCP Family Medicine; Visit Provider Nurse Practitioner Family | DX: R06.00 Dyspnea, unspecified (principal); R07.2 Precordial pain; I10 Essential (primary) hypertension; I51.89 Other ill-defined heart diseases | CPT/HCPCS: 93306 ==

== ENCOUNTER 2021-02-10 08:58 | Emergency (ER) | payer BC, SELFPAY ==
[2021-02-10 08:59] VITALS: BP 147/88; PULSE 81; RESP 18; TEMP 36.5; O2SAT 98
[2021-02-10 09:33] LABS: Adenovirus,PCR Not Detected (NotDetected); Bordetella Pertussis Not Detected (NotDetected); Chlamydophila Pneumoniae, PCR Not Detected (NotDetected); Coronavirus 19, PCR Not Detected (NotDetected); Coronavirus 229E Not Detected (NotDetected); Coronavirus NL63 Not Detected (NotDetected); Coronavirus OC43 Not Detected (NotDetected); Coronovirus HKU1,PCR Not Detected (NotDetected); Human Metapneumovirus Not Detected (NotDetected); Influenza A, PCR Not Detected (NotDetected); Influenza AH1, 2009 Not Detected (NotDetected); Influenza AH1, PCR Not Detected (NotDetected); Influenza AH3,PCR Not Detected (NotDetected); Influenza B, PCR Not Detected (NotDetected); Mycoplasma Pneumoniae, PCR Not Detected (NotDetected); Parainfluenza 1, PCR Not Detected (NotDetected); Parainfluenza 2, PCR Not Detected (NotDetected); Parainfluenza 3, PCR Not Detected (NotDetected); Parainfluenza 4, PCR Not Detected (NotDetected); Respiratory Syncytial Virus Not Detected (NotDetected); Rhinovirus/Enterovirus Not Detected (NotDetected)
--- NOTE | 2021-02-10 09:33 | HMH.EDUTC ---
[facility] [place] Disposition Clinical Impression: URI (upper respiratory infection) Qualifiers: URI type: unspecified URI Qualified Code(s): J06.9 - Acute upper respiratory infection, unspecified Disposition: Home, Self-Care Condition on Discharge: Good Instructions: DI for COVID-19 (Suspected or Confirmed ), Coronavirus Disease 2019, Preventing the Spread of Coronavirus Discharge Instructions, Cough, Cefdinir Additional Instructions: *Monitor Temp, Over the counter Motrin or Tylenol as directed/as needed Tylenol every 4 hours and Motrin every 6 hours (as long as your family doctor has told you that you can take it) for fever or pain. and straight to ER if unable to lower temp less than 101.0 after medication given *Warm salt water gargles may help to soothe the throat *Throat Lozenges *Warm fluids like tea with honey may help to soothe the throat *Sleep elevated *Humidifier/Vaporizer *Flonase 2 sprays in each nostril daily but be aware that it may take 2-3 days before you notice improvement * Follow up IMMEDIATELY for new or worsening symptoms or no Noticeable improvement over the next 48-72 hours. 911 for difficulty breathing or swallowing You were tested for today for COVID19 your test result should be back in the next 24-48 hours, you may call to the [facility] to see if your test results are back in the next 48 hours [phone] [facility] hours are 9am-9pm You was given a handout with instructions for Self Quarantine and Self isolation for while you wait on test results and what to do if they are positive If you are positive the Health Dept will be contacting you also Make sure to take your Vitamins Vit. C Vit D and Zinc if you can take them Prescriptions: guaiFENesin [Mucinex 600mg tablet] 1 - 2 tab PO Q12HP PRN #20 tab PRN Reason: Congestion Transmission Status: Pending to [id number] Fluticasone Propionate [Flonase 50mcg nasal spray 16gm] 1 spr NS DAILY #1 ml Transmission Status: Pending to [id number] Azithromycin [Z-Ramon 250mg Tab] 250 mg PO DIRECTED #6 tab Transmission Status: Pending to [id number] Referrals: Mukesh Nelson [Primary Care Provider] - As needed Forms: Work/School Release Medical Decision Making - Kimani Inquiry Pt receiving controlled substance: No Kimani was queried for this patient: No Vital Signs: 02/10/21 08:59 Temperature 97.7 F Temperature Source Oral Pulse Rate [Right] 81 Respiratory Rate 18 Blood Pressure [Right Arm] 147/88 H Blood Pressure Mean [Right Arm] 107 02 Sat by Pulse Oximetry 98 Oxygen Delivery Method Room Air Orders (Tests/Meds): ORDERS Category Date Time Status Full Resp Panel w/COVID ([facility]) Routine Lab 02/10/21 09:17 Received Medical Decision Narrative: Patient states that she is allergic to claritromycin but has taken zpack in the past without reactions or complications [facility] [place] HPI - General Stated complaint: SOA,cough,possible exposure Time Seen by Provider: 02/10/21 09:33 Mode of Arrival: Family Vehicle Source of Information: Patient Limitations: No Limitations Description of Symptoms (Recalled from Triage Doc. by RN): Patient c/o cough, shortness of breath, congestion and diarrhea since yesterday. Pt is concerned she has COVID. No obvious respiratory distress in ED triage. 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
[2021-02-10 09:40] VITALS: BP 132/71; PULSE 85; RESP 16; TEMP 36.8; O2SAT 97
== END 2021-02-10 09:49 | disposition home or self-care (01) ==
PROVIDERS: Emergency Provider Nurse Practitioner; PCP Family Medicine
DX: J06.9 Acute upper respiratory infection, unspecified (principal); Z20.822 Contact with and (suspected) exposure to COVID-19; I10 Essential (primary) hypertension; E78.5 Hyperlipidemia, unspecified; Z79.899 Other long term (current) drug therapy
CPT/HCPCS: 87581; 87633; 87798; 99202; G0463

== ENCOUNTER 2023-05-17 13:03 | Emergency (ER) | payer BC, SELFPAY ==
[2023-05-17 13:04] VITALS: BP 126/81; PULSE 97; RESP 16; TEMP 36.6; O2SAT 97; BMI 23.3
--- NOTE | 2023-05-17 13:18 | ECG_ITS ---
APPROVED REPORT Exam: Resting ECG HR:88 bpm ECG Measurements Heart Rate 88 AXES WA 117 P 69 QRSd 99 QRS 54 QT 382 T 68 QTc 428 Conclusion SINUS RHYTHM WITH SHORT WA INTERVAL BORDERLINE ECG UNCONFIRMED REPORT Electronically signed by : Tra Collins MD 05/18/2023 16:31:13
[2023-05-17 13:30] VITALS: BP 122/69; PULSE 84; RESP 18; O2SAT 99
--- NOTE | 2023-05-17 13:46 | XR_ITS ---
FINAL REPORT TECHNIQUE: Chest PA & Lateral CLINICAL HISTORY: chest pain, right sided. smoker, no chest surgeries. COMPARISON: None FINDINGS: 2 views of the chest were performed. The heart size is normal. The mediastinum is within normal limits. There is no acute cardiopulmonary process. There is an azygous pseudo lobe. There are no pleural effusions. There is no pneumothorax. The bony thorax appears intact. IMPRESSION: No acute cardiopulmonary process. Reviewed, Interpreted and Dictated by Moo Molina MD Transcribed by Sindi Batista Authenticated and . [facility] [place]
--- NOTE | 2023-05-17 13:55 | HMH.EDGENADL ---
Discharge Plan Disposition Patient Disposition: Home, Self-Care Chief Complaint: Chest Pain Prescriptions Prescriptions: No Action cholecalciferol (vitamin D3) 50 mcg (2,000 unit) capsule 50 mcg PO DAILY multivitamin Tablet 1 tab PO DAILY pxfivhxazt-kaqmwlyrshcyd-lmjd 50-325-40 mg tablet 1 tab PO Q4-6H PRN Patient Comments: TAKE 1 TABLET BY MOUTH EVERY 6 HOURS NEEDED FOR BARRETO. MAX 2 3 TIMES PER WEEK *DNF 01/30/20* amlodipine 2.5 mg tablet 2.5 mg PO DAILY Qty: 30 5RF metoprolol succinate 50 mg tablet extended release 24 hr 50 mg PO DAILY Qty: 90 3RF furosemide 20 mg tablet See Rx Instructions .ROUTE .COMPLEX Qty: 90 4RF Dose Instruction: TAKE 1 TABLET BY MOUTH EVERY DAY Rx Instructions: TAKE 1 TABLET BY MOUTH EVERY DAY azithromycin 250 MG tablet 250 mg PO DIRECTED Qty: 6 0RF Rx Instructions: Take two (2) tablets on day #1, then one (1) tablet day #2 thru #5 fluticasone propionate 120 SPR/BOT bottle 1 spr NS DAILY Qty: 1 0RF Rx Instructions: each nostril daily guaifenesin 600 MG tablet extended release 12hr 1 - 2 tab PO Q12HP PRN (Reason: Congestion) Qty: 20 0RF lisinopril 20 MG tablet 20 mg PO DAILY pantoprazole 40 MG tablet,delayed release (DR/EC) 40 mg PO DAILY gabapentin 300 MG capsule 300 mg PO DIRECTED Rx Instructions: take 1 300mg tablet in AM/ take 2 300mg tablet in PM cyanocobalamin (vitamin B-12) 1,000 MCG tablet 1,000 mcg PO DAILY black cohosh 40 MG tablet 40 mg PO DAILY duloxetine 60 mg capsule,delayed release(DR/EC) 90 mg PO DAILY Referrals Follow up/Referrals: Provider,MD Ej [Primary Care Provider] - See instructions Jonnie Jones MD [Staff Physician] - See instructions Clinical Impressions Clinical Impression: Chest pain, Palpitations, Arm paresthesia, left, Bradycardia Discharge ED Provider: Alexis Zarate General Adult HPI General Chief complaint: Chest Pain Stated complaint: low resting BP Time Seen by Provider: 05/17/23 13:47 Mode of Arrival: Ambulatory Source of Information: Patient Limitations: No Limitations Description of Symptoms (Recalled from ER Triage Doc. by RN): Presents to ED with c/o numbness in his left arm and intermittent chest pain for a few months. Patient bo reports that she uses her apple watch her monitor her HR and it has been dropping to 40 bpm. Patient further reports fatigue and that her throat feels tight and she has been some what SOA. PMH: POTS History of Present Illness HPI narrative: Patient is a 52-year-old who presents today with several complaints. First she has been having some chest twinges for the past several months. She denies any exertional symptoms or any diaphoresis associated with this. She also states today she felt some numbness in her left arm. Denies any injuries denies any other strokelike symptoms denies any motor changes change in vision coordination or loss of sensation. She states that she compresses her left arm on a chair at work and that she feels that some of her symptoms may be associated with that. Patient also states she wears an Apple Watch and that a few times when she is felt lightheaded she noticed that her heart rate was in the 40s. She currently feels lightheaded at the moment with recurrence of her symptoms. Related Data Home Medications Medication Instructions Recorded Confirmed black cohosh 40 mg tablet 40 mg PO DAILY hormone 07/21/19 09/24/20 cyanocobalamin (vitamin B-12) 1,000 mcg PO DAILY Supplement 07/21/19 09/24/20 1,000 mcg tablet gabapentin 300 mg capsule 300 mg PO DIRECTED Pain 07/21/19 09/24/20 lisinopril 20 mg tablet 20 mg PO DAILY HTN 07/21/19 09/24/20 pantoprazole 40 mg tablet,delayed 40 mg PO DAILY GERD 07/21/19 09/24/20 release cholecalciferol (vitamin D3) 50 50 mcg PO DAILY 07/30/19 09/24/20 mcg (2,000 unit) capsule multivitamin 1 tab PO
[2023-05-17 13:56] LABS: Basophils # 0.1 K/mm3 (0-0.2); Basophils % 1.1 % (0.1-2.0); Eosinophils # 0.3 K/mm3 (0.0-0.4); Eosinophils % 3.6 % (0.1-12.0); Hematocrit 43.5 % (37.0-47.0); Hemoglobin 14.7 g/dL (12.2-16.2); Lymphocytes # 2.6 K/mm3 (0.7-4.5); Lymphocytes % 37.7 % (10-50); Mean Corpuscular HGB Conc 33.7 g/dL (31.8-35.4); Mean Corpuscular Hemoglobin 31.6 pg (27.0-31.2); Mean Corpuscular Volume 93.7 fl (81-99); Mean Platelet Volume 8.3 fl (7.4-10.4); Monocytes # 0.4 K/mm3 (0.1-1.0); Monocytes % 6.2 % (1.7-9.3); Neutrophils # 3.5 K/mm3 (1.8-7.8); Neutrophils % 51.4 % (37.0-80.0); Platelet Count 193 K/mm3 (142-424); Red Blood Count 4.64 M/mm3 (4.20-5.40); Red Cell Distribution Width 13.1 % (11.5-17.5); White Blood Count 6.9 K/mm3 (4.8-10.8)
[2023-05-17 14:00] VITALS: BP 126/72; PULSE 83; RESP 14; O2SAT 99
[2023-05-17 14:02] LABS: Chloride 103 mmol/L (98-107); Potassium 3.4 mmoL/L (3.5-5.1); Sodium 140 mmol/L (136-145)
[2023-05-17 14:04] LABS: Blood Urea Nitrogen 4 mg/dl (7-17); Creatinine Clearance Estimated 106 mL/min (50-200); Estimated Glomerular Filt Rate 105 ml/min (>60); GFR (African American) 127 ML/MIN (>60)
[2023-05-17 14:05] LABS: Alanine Aminotransferase 25 U/L (12-78); Albumin Level 4.3 g/dl (3.5-5.0); Albumin/Globulin Ratio 1.7 (1.1-1.8); Alkaline Phosphatase 115 U/L (38-126); Anion Gap 9.4 mEq/L (5-15); Aspartate Amino Transferase 31 U/L (14-36); Bilirubin,Total 0.4 mg/dl (0.2-1.3); Carbon Dioxide 31 mmol/L (22.0-30.0); Globulin 2.6 g/dL (1.3-3.2); Glucose 95 mg/dl (74-100); Total Protein,Serum 6.9 g/dl (6.3-8.2)
--- NOTE | 2023-05-17 14:10 | PC.NURSE ---
Rounded on patient; nothing needed at this time. Call light within reach of patient
[2023-05-17 14:24] LABS: Troponin I < 0.01 ng/ml (0.00-0.034)
[2023-05-17 14:30] VITALS: BP 125/75; PULSE 84; RESP 13; O2SAT 99
[2023-05-17 14:34] LABS: Magnesium 1.9 mg/dl (1.6-2.3)
[2023-05-17 14:50] VITALS: BP 131/75; PULSE 76; RESP 18; TEMP 36.6; O2SAT 100
[2023-05-17 15:06] LABS: Thyroid Stimulating Hormone 0.84 uIU/mL (0.465-4.68)
== END 2023-05-17 14:55 | disposition home or self-care (01) ==
PROVIDERS: Emergency Provider Student in an Organized Health Care Education/Training Program
DX: R07.89 Other chest pain (principal); R00.1 Bradycardia, unspecified; R20.2 Paresthesia of skin; R00.2 Palpitations; R53.83 Other fatigue; R42 Dizziness and giddiness; F17.210 Nicotine dependence, cigarettes, uncomplicated
CPT/HCPCS: 71046; 80053; 83735; 84443; 84484; 85025; 93005; 96360; 99284